=== PATIENT | female | born 1940 | race Caucasian/White ===

== ENCOUNTER 2022-06-15 10:27 | Inpatient (IN) ==
[2022-06-15] MEDS ORDERED: ONDANSETRON 4 MG/2 ML VIAL IV ONE (11:14)
[2022-06-15 11:16] LABS: POC Calcium, Ionized 1.23 (1.16-1.32); POC Creatinine 1.9 (0.6-1.2); POC Potassium 3.9 (3.3-5.1)
[2022-06-15 12:03] LABS: Basophils # (Auto) 0.02 K/mcL (0.00-0.30); Basophils % (Auto) 0.3 % (0.0-2.0); Eosinophils # (Auto) 0.01 K/mcL (0.00-0.70); Eosinophils % (Auto) 0.2 % (0.0-7.0); Hematocrit 34.3 % (34.1-44.9); Hemoglobin 11.6 g/dL (11.2-15.7); Lymphocytes # (Auto) 1.02 K/mcL (1.50-4.80); Lymphocytes % (Auto) 16.2 % (15.5-49.0); Mean Cell Volume 95.3 fL (80.0-100.0); Mean Corpuscular HGB Conc 33.8 g/dL (31.0-36.0); Mean Platelet Volume 9.9 fL (8.8-12.5); Monocytes % (Auto) 9.6 % (1.0-12.0); Neutrophils % (Auto) 73.5 % (38.0-78.0); Platelet Count 130 K/mcL (140-440); Red Cell Distribution Width 12.8 % (11.5-14.5); WBC 6.3 K/mcL (4.5-11.0)
[2022-06-15] MEDS ORDERED: 0.9 % SODIUM CHLORIDE 1,000 ML IV ONE ×3 (12:27→16:34)
--- NOTE | 2022-06-15 12:29 | Emergency Department Note ---
Nausea/Vomiting/Diarrhea HPI General Chief complaint: Nausea/Vomiting/Diarrhea Stated complaint: cold/flu sx Time Seen by Provider: 06/15/22 10:55 Source: patient and family Mode of arrival: wheelchair History of Present Illness HPI Narrative: 81-year-old female with a history of hypertension, depression/anxiety, and frequent UTIs presents to the ER with 5 days of nausea, no vomiting, and frequent diarrhea. She states that the diarrhea started 5 days ago and was persistent every 1/2 hour. Denies blood in her stool. On day 3 she took some Imodium and it slowed down. She denies abdominal pain. Previous abdominal surgeries include a cholecystectomy and hysterectomy/oophorectomy. She is belching frequently. Her son is with her to give some of her history today and states that she was chilled yesterday and they were having to pile blankets on her. She has been been taking ibuprofen and Tylenol for pain and fever. She is currently afebrile. She does endorse some dysuria. Denies flank pain. Related Data Home Medications Medication Instructions Recorded Confirmed aspirin 81 mg chewable tablet 81 mg PO DAILY 06/12/15 06/15/22 cranberry [id number]-[id number] coag 450 1 each PO DAILY 09/06/16 06/15/22 mg-30 mg-50 million cell tablet vitamin B complex 1 cap PO QDAY 07/18/19 06/15/22 cyanocobalamin (vitamin B-12) 100 See Rx Instructions .Route .COMPLEX 01/03/20 06/15/22 mcg/mL injection solution Previous Rx's Medication Instructions Recorded ondansetron 4 mg disintegrating 4 mg PO Q8H PRN nausea and 03/02/21 tablet vomiting #20 tabs bupropion HCl 100 mg tablet,12 hr See Rx Instructions .Route 03/08/22 sustained-release .COMPLEX #90 tabs escitalopram oxalate 20 mg tablet 20 mg PO QDAY depression #90 tabs 03/08/22 clorazepate dipotassium 3.75 mg 3.75 mg PO TID 90 days #270 tabs 04/01/22 tablet cholecalciferol (vitamin D3) 25 25 mcg PO QDAY #30 caps 04/12/22 mcg (1,000 unit) capsule bisoprolol fumarate 10 mg tablet See Rx Instructions .Route 04/27/22 .COMPLEX #90 tabs dicyclomine 10 mg capsule 10 mg PO BID IBS #60 caps 04/27/22 telmisartan 40 mg tablet 40 mg PO QAM #90 tabs 05/04/22 omeprazole 20 mg capsule,delayed 20 mg PO QDAY #90 caps 05/13/22 release mirtazapine 15 mg tablet 22.5 mg PO QHS 30 days #45 tabs 06/15/22 Allergies Allergy/AdvReac Type Severity Reaction Status Date / Time Penicillins Allergy Severe Unknown Verified 05/30/22 16:58 acetaminophen Allergy Unknown Unknown Verified 05/30/22 16:58 [From Darvocet-N] Nortriptyline AdvReac Intermediate Fatigued Verified 05/30/22 16:58 Amoxicillin AdvReac Nausea Verified 05/30/22 16:58 cefuroxime AdvReac Nausea Verified 05/30/22 16:58 cephalexin AdvReac Nausea Verified 05/30/22 16:58 ciprofloxacin [From Cipro] AdvReac Nausea Verified 05/30/22 16:58 codeine AdvReac Nausea Verified 05/30/22 16:58 Erythromycin Base AdvReac Nausea Verified 05/30/22 16:58 losartan [Losartan] AdvReac Nausea Verified 05/30/22 16:58 methylprednisolone AdvReac Nausea Verified 05/30/22 16:58 metoclopramide AdvReac Nausea Verified 05/30/22 16:58 naproxen AdvReac Nausea Verified 05/30/22 16:58 nitrofurantoin AdvReac Nausea Verified 05/30/22 16:58 prochlorperazine AdvReac Nausea Verified 05/30/22 16:58 [From Compazine] promethazine AdvReac Nausea Verified 05/30/22 16:58 propoxyphene AdvReac Nausea Verified 05/30/22 16:58 sulfamethoxazole AdvReac Nausea Verified 05/30/22 16:58 [From Bactrim] trimethoprim [From Bactrim] AdvReac Nausea Verified 05/30/22 16:58 erythromycin Allergy Unknown Unknown Uncoded 05/07/22 10:29 dextropropoxyphene AdvReac Unknown Nausea Uncoded 05/07/22 10:29 Review of Systems ROS ROS Narrative: Narrative: All systems ED: reviewed and negative except as stated. PFSH Narrative Patient History Narrative: Narrative: Medical/Surgical/Family History All Active Problems (Updated 06/15/22 @ 19:23 by Shanon Guillory PA-C) Acute dehydration (Acute) Weakness (Acute) Acute renal insufficiency (Acute) Diarrhea (Acute) Orthostasis (Acute) Dehydration (Acute) Stage 1 acute kidney injury (Acute) Nausea (Acute) Chronic nausea (Acute) HIV screening declined (Acute) Do not resuscitate (Acute) Medicare annual wellness visit, subsequent (Acute) Hair loss (Acute) Cerumen impaction (Acute) UTI (urinary tract infection) (Acute) Rhinorrhea (Acute) Chronic gastritis (Acute) Headache (Acute) Dark urine (Acute) Irritable bowel syndrome (Acute) Right shoulder strain (Acute) Pedal edema (Acute) Major depressive disorder, recurrent (Chronic) Hypertension, well controlled (Acute) Irritable bowel syndrome with alternating bowel habits (Acute) SOB (shortness of breath) (Acute) Acute exacerbation of CHF (congestive heart failure) (Acute) Fecal incontinence (Chronic) Constipation (Acute) Greater trochanteric bursitis of left hip (Chronic) Anemia, B12 deficiency (Chronic) Cervical spine arthritis (Acute) Obesity (Chronic) Arthritis of left knee (Acute) Arthritis of left hip (Acute) History of panic attacks (Chronic) Generalized anxiety disorder (Chronic) Generalized anxiety disorder with panic attacks (Acute) MDD (major depressive disorder), recurrent episode, moderate (Acute) Esophagitis (Chronic) Gastric polyp (Chronic) Schatzki's ring (Chronic) Primary osteoarthritis, left hand (Chronic) Fatigue (Chronic) Poor sleep (Chronic) High blood pressure (Chronic) Depression with anxiety (Chronic) Urinary frequency (Chronic) Medical History Anxiety Cerumen impaction Chronic gastritis Dr. Galvez Chronic nausea Chronic nausea Chronic UTI Depression Depression with anxiety Dizziness Do not resuscitate Dry mouth Esophagitis Fainting Fatigue Functional nausea Gastric polyp Greater trochanteric bursitis of left hip Hair loss High blood pressure HIV screening declined Medicare annual wellness visit, subsequent Obesity Palpitations Poor sleep Primary osteoarthritis, left hand Schatzki's ring Denies symptoms-12/18/20 Trochanteric bursitis of left hip Urinary frequency UTI (urinary tract infection) Surgical History History of broken finger left thumb History of cholecystectomy History of esophagogastroduodenoscopy (EGD) (03/25/17) History of laparoscopic cholecystectomy History of toe surgery x3 History of tonsillectomy and adenoidectomy History of total hysterectomy (~1994) History of total knee replacement 2007; 2011 Family History Mother Cancer Arthritis Alcoholism Daughter Opioid dependence Father Heart disease Social History Smoking Status: Never smoker Alcohol Intake Frequency: does not drink Substance Use: does not use Exam Narrative Narrative: General: AOx3, NAD, nontoxic appearing. Pleasant and conversant. HEENT: PERRL, EOMI, normocephalic. Moist mucous membranes. Normal facies and normal dentition. Chest: Symmetric, no pain to palpation Respiratory: Lungs clear to auscultation bilaterally. No respiratory distress. Unlabored breathing. Heart: Regular rate and rhythm, no murmurs/clicks/rubs. Abdomen: Non-tender, Non distended, normal bowel tones. No organomegaly. Extremities: Warm and well perfused. No edema. DP 2+ bilaterally. No venous stasis. Neuro: No focal deficits. Cranial nerves II-XII grossly normal. Skin: Warm dry, no rashes or lesions, no cyanosis. Psych: Normal mood and affect Heme/Lymph: No abnormal bruising Course Course Course Narrative: 81-year-old female patient presents with 5 days of profuse diarrhea with nausea Reevaluation(s) Reevaluation #1: Obtain basic labs, hepatic panel, UA, stool culture, C. difficile PCR Establish IV and give 1 L IV fluids Reevaluation #2: Basic labs show a ywoau-jo-ibmd creatinine of 1.9 with baseline creatinine of 1.1-1.3. BUN is 21. Electrolytes within normal limits. CBC without leukocytosis or left shift Hepatic panel within normal limits. We will give another liter of fluid and recheck her creatinine Reevaluation #3: After 2 L of fluid the patient's creatinine has down trended to 1.5. Initially patient was agreeable to discharging home given her unremarkable work- up. She then got up to the toilet and had another episode of diarrhea. She has not been able to give us urine sample. She states she still feels very weak. I had her orthostatics checked and they are positive with a line blood pressure of 147/72 mmHg that trended down to 97/81 mmHg standing. Pulse remained the same but she is currently on a beta-anjana. Additional Reevaluation(s): I reached out to the hospitalist for observation admission and waiting to hear back. Vital Signs Vital signs: Vital Signs Temperature 98.5 F 06/15/22 10:30 Pulse Rate 82 06/15/22 10:30 Respiratory Rate 20 06/15/22 10:30 Blood Pressure 93/57 06/15/22 10:30 Pulse Oximetry (%) 96 06/15/22 10:30 Oxygen Delivery Method Room Air 06/15/22 10:30 Temperature 98.5 F 06/15/22 10:30 Pulse Rate 88 06/15/22 18:17 Respiratory Rate 20 06/15/22 10:30 Blood Pressure 128/68 06/15/22 18:17 Pulse Oximetry (%) 96 06/15/22 18:17 Oxygen Delivery Method Room Air 06/15/22 10:30 MDM MDM Narrative Medical decision making narrative: Acute dehydration Orthostasis Weakness Diarrhea Acute renal insufficiency Patient has been given 2 L of IV fluids and still remains orthostatic. She continues to be weak and have frequent diarrhea. Currently her stool culture and C. difficile PCR are pending. Blood cultures are also pending. I was unable to collect a urine sample, but this will need to be completed. She does have acute renal insufficiency secondary to dehydration, and given her o rthostasis I believe she should be admitted for observation. Dr. Power has accepted the patient for admission. Lab Data 06/15/22 11:00 Labs: Lab Results 06/15/22 06/15/22 06/15/22 Range/Units 11:00 11:00 11:10 WBC 6.3 (4.5-11.0) K/mcL RBC 3.60 (3.59-5.38) M/mcL Hgb 11.6 (11.2-15.7) g/dL Hct 34.3 (34.1-44.9) % POC Hct 34.0 L (36-48) MCV 95.3 (80.0-100.0) fL MCH 32.2 (26.0-34.0) pg MCHC 33.8 (31.0-36.0) g/dL RDW 12.8 (11.5-14.5) % Plt Count 130 L (140-440) K/mcL MPV 9.9 (8.8-12.5) fL Immature Gran % (Auto) 0.2 (0.0-0.5) % Neut % (Auto) 73.5 (38.0-78.0) % Lymph % (Auto) 16.2 (15.5-49.0) % Hand % (Auto) 9.6 (1.0-12.0) % Eos % (Auto) 0.2 (0.0-7.0) % Baso % (Auto) 0.3 (0.0-2.0) % Lymph # (Auto) 1.02 L (1.50-4.80) K/mcL Hand # (Auto) 0.60 (0.10-0.90) K/mcL Eos # (Auto) 0.01 (0.00-0.70) K/mcL Baso # (Auto) 0.02 (0.00-0.30) K/mcL Immature Gran # 0.01 (0.00-0.05) K/mcl Absolute Neutrophils 4.62 (1.80-8.00) K/mcL POC Sodium 139 (133-145) POC Potassium 3.9 (3.3-5.1) POC Chloride 106 (96-108) POC Total CO2 25.0 (22-30) POC BUN 21 H (6-20) POC Creatinine 1.9 H (0.6-1.2) POC Glucose 107 H (70-105) POC WB Ioniz Calcium 1.23 (1.16-1.32) Total Bilirubin 0.5 (0.1-1.0) mg/dL Direct Bilirubin < 0.2 (0-0.3) mg/dL AST 20 (<32) U/L ALT 12 (<40) U/L Alkaline Phosphatase 58 (39-117) U/L Total Protein 6.4 (5.9-8.4) gm/dL Albumin 3.8 (3.2-5.2) gm/dL Globulin 2.6 (2.2-3.7) gm/dL Lipase 21 (7-60) U/L Urine Color Urine Appearance (Clear) Urine pH (5.0-9.0) Ur Specific Traer (1.000-1.035) Urine Protein (Negative) mg/dL Urine Glucose (UA) (Negative) mg/dL Urine Ketones (Negative) mg/dL Urine Occult Blood (Negative) mg/dL Urine Nitrate (Negative) Urine Bilirubin (Negative) mg/dL Urine Urobilinogen mg/dL Ur Leukocyte Esterase (Negative) /uL Urine RBC (0-3) /hpf Urine WBC (0-4) /hpf Ur Squamous Epith Cells (0-4) /hpf Urine Bacteria (0) /hpf Urine Mucus (None) /hpf Ur Culture Indicated? 06/15/22 06/15/22 Range/Units 15:20 17:42 WBC (4.5-11.0) K/mcL RBC (3.59-5.38) M/mcL Hgb (11.2-15.7) g/dL Hct (34.1-44.9) % POC Hct 33.0 L (36-48) MCV (80.0-100.0) fL MCH (26.0-34.0) pg MCHC (31.0-36.0) g/dL RDW (11.5-14.5) % Plt Count (140-440) K/mcL MPV (8.8-12.5) fL Immature Gran % (Auto) (0.0-0.5) % Neut % (Auto) (38.0-78.0) % Lymph % (Auto) (15.5-49.0) % Hand % (Auto) (1.0-12.0) % Eos % (Auto) (0.0-7.0) % Baso % (Auto) (0.0-2.0) % Lymph # (Auto) (1.50-4.80) K/mcL Hand # (Auto) (0.10-0.90) K/mcL Eos # (Auto) (0.00-0.70) K/mcL Baso # (Auto) (0.00-0.30) K/mcL Immature Gran # (0.00-0.05) K/mcl Absolute Neutrophils (1.80-8.00) K/mcL POC Sodium 141 (133-145) POC Potassium 3.6 (3.3-5.1) POC Chloride 108 (96-108) POC Total CO2 23.0 (22-30) POC BUN 18 (6-20) POC Creatinine 1.5 H (0.6-1.2) POC Glucose 93 (70-105) POC WB Ioniz Calcium 1.21 (1.16-1.32) Total Bilirubin (0.1-1.0) mg/dL Direct Bilirubin (0-0.3) mg/dL AST (<32) U/L ALT (<40) U/L Alkaline Phosphatase (39-117) U/L Total Protein (5.9-8.4) gm/dL Albumin (3.2-5.2) gm/dL Globulin (2.2-3.7) gm/dL Lipase (7-60) U/L Urine Color Yellow Urine Appearance Clear (Clear) Urine pH 5.0 (5.0-9.0) Ur Specific Traer 1.008 (1.000-1.035) Urine Protein Negative (Negative) mg/dL Urine Glucose (UA) Negative (Negative) mg/dL Urine Ketones Negative (Negative) mg/dL Urine Occult Blood Negative (Negative) mg/dL Urine Nitrate Negative (Negative) Urine Bilirubin Negative (Negative) mg/dL Urine Urobilinogen Negative mg/dL Ur Leukocyte Esterase 75 A (Negative) /uL Urine RBC 1 (0-3) /hpf Urine WBC 4 (0-4) /hpf Ur Squamous Epith Cells 1 (0-4) /hpf Urine Bacteria None (0) /hpf Urine Mucus Few A (None) /hpf Ur Culture Indicated? No ED POC Tests ED POC Tests: ARACELIS - Influenza A Negative ARACELIS - Influenza B Negative ARACELIS - SARS Antigen Negative Discharge Plan Patient/Caregiver Discharge Instructions Pt seen by [employer]/PA only: Yes Clinical Impression: Acute dehydration, Weakness, Acute renal insufficiency, Diarrhea, Orthostasis Activity Restrictions/Additional Instructions: You were seen and evaluated today for gastrointestinal symptoms, dehydration, and weakness. You had a laboratory work-up that was unremarkable other than a decrease in your kidney function, which I think is related to acute dehydration. Your stool culture, urine culture and blood cultures are pending. If any of these are abnormal we will give you a call. In the meantime stay hydrated. Use your Zofran for nausea. I recommend using Imodium if you are having frequent diarrhea to prevent further dehydration. I did review your medications and there are no adjustments to dosing necessary at this time. Follow-up with your psychiatrist as soon as possible regarding concerns for the current medications you are taking. Patient Disposition: Xfer As Inpt ([facility]) Condition: Fair Follow up with: Black Stanley MD [Primary Care Provider] - Prescriptions: No Action bupropion HCl 100 mg tablet sustained-release 12 hr See Rx Instructions .ROUTE .COMPLEX Qty: 90 1RF Dose Instruction: TAKE 1 TABLET BY MOUTH EVERY DAY Rx Instructions: TAKE 1 TABLET BY MOUTH EVERY DAY escitalopram oxalate 20 mg tablet 20 mg PO QDAY Qty: 90 1RF clorazepate dipotassium 3.75 mg tablet 3.75 mg PO TID 90 Days Qty: 270 1RF cyanocobalamin (vitamin B-12) 100 mcg/mL solution See Rx Instructions .ROUTE .COMPLEX Rx Instructions: 1000mcg IM once a month; cholecalciferol (vitamin D3) 25 mcg (1,000 unit) capsule 25 mcg PO QDAY Qty: 30 2RF bisoprolol fumarate 10 mg tablet See Rx Instructions .ROUTE .COMPLEX Qty: 90 0RF Dose Instruction: TAKE 1 TABLET BY MOUTH EVERY DAY Rx Instructions: TAKE 1 TABLET BY MOUTH EVERY DAY dicyclomine 10 mg capsule 10 mg PO BID Qty: 60 5RF telmisartan 40 mg tablet 40 mg PO QAM Qty: 90 0RF omeprazole 20 mg capsule,delayed release(DR/EC) 20 mg PO QDAY Qty: 90 0RF mirtazapine 15 mg tablet 22.5 mg PO QHS 30 Days Qty: 45 2RF vitamin B complex Capsule 1 cap PO QDAY aspirin 81 MG tablet,chewable 81 mg PO DAILY cranberry [id number] coag 1 EACH tablet 1 each PO DAILY ondansetron 4 mg tablet,disintegrating 4 mg PO Q8H PRN (Reason: nausea and vomiting) Qty: 20 0RF
[2022-06-15 12:39] LABS: ALT/SGPT 12 U/L (<40); AST/SGOT 20 U/L (<32); Albumin 3.8 gm/dL (3.2-5.2); Alkaline Phosphatase 58 U/L (39-117); Bilirubin,Direct < 0.2 mg/dL (0-0.3); Bilirubin,Total 0.5 mg/dL (0.1-1.0); Globulin 2.6 gm/dL (2.2-3.7)
[2022-06-15] MEDS ORDERED: LOPERAMIDE 2 MG CAPSULE PO ONE (15:09)
[2022-06-15 15:34] LABS: POC Calcium, Ionized 1.21 (1.16-1.32); POC Creatinine 1.5 (0.6-1.2); POC Potassium 3.6 (3.3-5.1)
--- NOTE | 2022-06-15 17:40 | Internal Med History&Physical ---
HPI History of Present Illness Patient information: Note initiated : 06/15/22 at 5:37 pm Service Date, if different from initiated Date: [] Patient: René Montero a 81 y/o F admitted on for cold/flu sx. Chief Complaint: [diarrhea and lightheadedness] Chief complaint: diarrhea and lightheadedness History of present illness: Ms. Montero is a 81 year old F history of depression anxiety and hypertensions presenting with 1 week history of diarrhea. No prior similar episode. She denies sick contacts introduction of new food or recent travel. She stated that her psychiatrist changes some of her antidepressant about a month ago. She is having watery diarrhea for the past week. She denies any nausea or vomiting. She denies any abdominal pain. She denies any urinary symptoms such as dysuria or change in urinary urgency she urinary more frequently but she attributed to the fact that she tried to drink a lot more to make up for the diarrhea that she had. She is also having lightheadedness. Vital signs upon ED presentations within normal limits but positive for orthostatic hypotension. Labs significant for lack of leukocytosis with WBC 6.3. Lactic acid pending. Procalcitonin pending. CT of the PCR negative. Stool enteric pathogen pending. Serum BUN/creatinine 21 and 1.9, respectively. Admission request is called for symptomatic dehydration. Constitutional Constitutional: Present weakness; Absent chills, excessive sweating, fatigue or fever(s) EENT Eyes: Absent blurry vision, change in vision, loss of vision or other visual disturbances Ears: Absent decreased hearing or tinnitus Nose, mouth and throat: Absent abnormal hearing, dry mouth, headache(s), nasal congestion or sore throat Cardiovascular Cardiovascular: Absent chest pain, chest pain at rest, edema, irregular heart rh ythm or palpatations Respiratory Respiratory: Absent cough, dyspnea or wheezing Gastrointestinal Gastrointestinal: Present diarrhea; Absent abdominal pain, constipation, nausea or vomiting Musculoskeletal Musculoskeletal: Absent back pain, deformity, limited range of motion, muscle cramps, muscle weakness or numbness Integumentary Integumentary: Absent lesions, rash or wounds Neurological Neurological: Absent focal weakness, headache(s) or numbness Psychiatric Psychiatric: Absent anxiety, depression or hallucinations PFSH PFSH All Active Problems (Updated 06/15/22 @ 17:46 by Todd Power MD) Dehydration (Acute) Stage 1 acute kidney injury (Acute) Nausea (Acute) Chronic nausea (Acute) HIV screening declined (Acute) Do not resuscitate (Acute) Medicare annual wellness visit, subsequent (Acute) Hair loss (Acute) Cerumen impaction (Acute) UTI (urinary tract infection) (Acute) Rhinorrhea (Acute) Chronic gastritis (Acute) Headache (Acute) Dark urine (Acute) Irritable bowel syndrome (Acute) Right shoulder strain (Acute) Pedal edema (Acute) Major depressive disorder, recurrent (Chronic) Hypertension, well controlled (Acute) Irritable bowel syndrome with alternating bowel habits (Acute) SOB (shortness of breath) (Acute) Acute exacerbation of CHF (congestive heart failure) (Acute) Fecal incontinence (Chronic) Constipation (Acute) Greater trochanteric bursitis of left hip (Chronic) Anemia, B12 deficiency (Chronic) Cervical spine arthritis (Acute) Obesity (Chronic) Arthritis of left knee (Acute) Arthritis of left hip (Acute) History of panic attacks (Chronic) Generalized anxiety disorder (Chronic) Generalized anxiety disorder with panic attacks (Acute) MDD (major depressive disorder), recurrent episode, moderate (Acute) Esophagitis (Chronic) Gastric polyp (Chronic) Schatzki's ring (Chronic) Primary osteoarthritis, left hand (Chronic) Fatigue (Chronic) Poor sleep (Chronic) High blood pressure (Chronic) Depression with anxiety (Chronic) Urinary frequency (Chronic) Medical History Anxiety Cerumen impaction Chronic gastritis Dr. Galvez Chronic nausea Chronic nausea Chronic UTI Depression Depression with anxiety Dizziness Do not resuscitate Dry mouth Esophagitis Fainting Fatigue Functional nausea Gastric polyp Greater trochanteric bursitis of left hip Hair loss High blood pressure HIV screening declined Medicare annual wellness visit, subsequent Obesity Palpitations Poor sleep Primary osteoarthritis, left hand Schatzki's ring Denies symptoms-12/18/20 Trochanteric bursitis of left hip Urinary frequency UTI (urinary tract infection) Surgical History History of broken finger left thumb History of cholecystectomy History of esophagogastroduodenoscopy (EGD) (03/25/17) History of laparoscopic cholecystectomy History of toe surgery x3 History of tonsillectomy and adenoidectomy History of total hysterectomy (~1994) History of total knee replacement 2007; 2011 Family History Mother Cancer Arthritis Alcoholism Daughter Opioid dependence Father Heart disease Social History physical activity: walking frequency: 3-4 times per week smoking status: Never smoker alcohol intake frequency: does not drink substance use type: does not use seatbelt use: always MEDS/ALLERGIES Home Medications and Allergies Home Medications Medication Instructions Recorded Confirmed Type aspirin 81 mg chewable tablet 81 mg PO DAILY 06/12/15 06/15/22 History cranberry [id number] coag 450 1 each PO DAILY 09/06/16 06/15/22 History mg-30 mg-50 million cell tablet vitamin B complex 1 cap PO QDAY 07/18/19 06/15/22 History cyanocobalamin (vitamin B-12) 100 See Rx Instructions .Route .COMPLEX 01/03/20 06/15/22 History mcg/mL injection solution ondansetron 4 mg disintegrating 4 mg PO Q8H PRN nausea and 03/02/21 06/15/22 Rx tablet vomiting #20 tabs bupropion HCl 100 mg tablet,12 hr See Rx Instructions .Route 03/08/22 06/15/22 Rx sustained-release .COMPLEX #90 tabs escitalopram oxalate 20 mg tablet 20 mg PO QDAY depression #90 tabs 03/08/22 06/15/22 Rx clorazepate dipotassium 3.75 mg 3.75 mg PO TID 90 days #270 tabs 04/01/22 06/15/22 Rx tablet cholecalciferol (vitamin D3) 25 25 mcg PO QDAY #30 caps 04/12/22 06/15/22 Rx mcg (1,000 unit) capsule bisoprolol fumarate 10 mg tablet See Rx Instructions .Route 04/27/22 06/15/22 Rx .COMPLEX #90 tabs dicyclomine 10 mg capsule 10 mg PO BID IBS #60 caps 04/27/22 06/15/22 Rx telmisartan 40 mg tablet 40 mg PO QAM #90 tabs 05/04/22 06/15/22 Rx omeprazole 20 mg capsule,delayed 20 mg PO QDAY #90 caps 05/13/22 06/15/22 Rx release mirtazapine 15 mg tablet 22.5 mg PO QHS 30 days #45 tabs 06/15/22 06/15/22 Rx Allergies Allergy/AdvReac Type Severity Reaction Status Date / Time Penicillins Allergy Severe Unknown Verified 05/30/22 16:58 acetaminophen Allergy Unknown Unknown Verified 05/30/22 16:58 [From Darvocet-N] Nortriptyline AdvReac Intermediate Fatigued Verified 05/30/22 16:58 Amoxicillin AdvReac Nausea Verified 05/30/22 16:58 cefuroxime AdvReac Nausea Verified 05/30/22 16:58 cephalexin AdvReac Nausea Verified 05/30/22 16:58 ciprofloxacin [From Cipro] AdvReac Nausea Verified 05/30/22 16:58 codeine AdvReac Nausea Verified 05/30/22 16:58 Erythromycin Base AdvReac Nausea Verified 05/30/22 16:58 losartan [Losartan] AdvReac Nausea Verified 05/30/22 16:58 methylprednisolone AdvReac Nausea Verified 05/30/22 16:58 metoclopramide AdvReac Nausea Verified 05/30/22 16:58 naproxen AdvReac Nausea Verified 05/30/22 16:58 nitrofurantoin AdvReac Nausea Verified 05/30/22 16:58 prochlorperazine AdvReac Nausea Verified 05/30/22 16:58 [From Compazine] promethazine AdvReac Nausea Verified 05/30/22 16:58 propoxyphene AdvReac Nausea Verified 05/30/22 16:58 sulfamethoxazole AdvReac Nausea Verified 05/30/22 16:58 [From Bactrim] trimethoprim [From Bactrim] AdvReac Nausea Verified 05/30/22 16:58 erythromycin Allergy Unknown Unknown Uncoded 05/07/22 10:29 dextropropoxyphene AdvReac Unknown Nausea Uncoded 05/07/22 10:29 EXAM Constitutional Vitals: Temp Pulse Resp BP Pulse Ox O2 Del Method 36.9 C 83 20 129/47 97 Room Air 06/15/22 10:30 06/15/22 15:38 06/15/22 10:30 06/15/22 15:32 06/15/22 15:38 06/15/22 10:30 General appearance: cooperative and no acute distress Head Head exam: Present atraumatic and normocephalic Eye Eye exam: Present EOMI and PERRL ENT ENT exam: Present mucous membranes moist, normal exam and normal external ear exam Neck Neck exam: Present normal inspection; Absent lymphadenopathy, tenderness or thyromegaly Respiratory Respiratory exam: Absent accessory muscle use, respiratory distress or wheezes Cardiovascular Cardiovascular exam: Present normal rate and rhythm; Absent JVD GI/Abdominal GI/Abdominal exam: Present normal bowel sounds and soft; Absent organomegaly or tenderness Extremities Exam Extremities exam: Present full ROM, normal capillary refill and normal inspection; Absent tenderness Neurological Exam Neurological exam: Present alert, CN II-XII intact and oriented X3; Absent motor sensory deficit Psychiatric Psychiatric exam: Present normal affect and normal mood; Absent anxious or depressed Skin Skin exam: Present dry and intact DATA Data Completed and Pending Labs: Labs from last 24 hours 06/15/22 06/15/22 06/15/22 15:20 11:10 11:00 WBC RBC Hgb Hct POC Hct 33.0 L 34.0 L MCV MCH MCHC RDW Plt Count MPV Immature Gran % (Auto) Neut % (Auto) Lymph % (Auto) Cook % (Auto) Eos % (Auto) Baso % (Auto) Lymph # (Auto) Cook # (Auto) Eos # (Auto) Baso # (Auto) Immature Gran # Absolute Neutrophils POC Sodium 141 139 POC Potassium 3.6 3.9 POC Chloride 108 106 POC Total CO2 23.0 25.0 POC BUN 18 21 H POC Creatinine 1.5 H 1.9 H POC Glucose 93 107 H POC WB Ioniz Calcium 1.21 1.23 Total Bilirubin 0.5 Direct Bilirubin < 0.2 AST 20 ALT 12 Alkaline Phosphatase 58 Total Protein 6.4 Albumin 3.8 Globulin 2.6 Lipase 21 06/15/22 11:00 WBC 6.3 RBC 3.60 Hgb 11.6 Hct 34.3 POC Hct MCV 95.3 MCH 32.2 MCHC 33.8 RDW 12.8 Plt Count 130 L MPV 9.9 Immature Gran % (Auto) 0.2 Neut % (Auto) 73.5 Lymph % (Auto) 16.2 Cook % (Auto) 9.6 Eos % (Auto) 0.2 Baso % (Auto) 0.3 Lymph # (Auto) 1.02 L Cook # (Auto) 0.60 Eos # (Auto) 0.01 Baso # (Auto) 0.02 Immature Gran # 0.01 Absolute Neutrophils 4.62 POC Sodium POC Potassium POC Chloride POC Total CO2 POC BUN POC Creatinine POC Glucose POC WB Ioniz Calcium Total Bilirubin Direct Bilirubin AST ALT Alkaline Phosphatase Total Protein Albumin Globulin Lipase A/P Assessment and plan (1) Stage 1 acute kidney injury: Status: Acute (2) Dehydration: Status: Acute (3) Diarrhea: Status: Resolved Qualifiers: Diarrhea type: presumed infectious Qualified Code(s): R19.7 - Diarrhea, unspecified (4) Major depressive disorder, recurrent: Status: Chronic Qualifiers: Active/Remission status: currently active Major depression episode severity: moderate Qualified Code(s): F33.1 - Major depressive disorder, recurrent, moderate (5) Generalized anxiety disorder: Status: Chronic (6) Hypertension, well controlled: Status: Acute Narrative A/P Narrative: Assessment and Plans: 1. Clinical dehydration and stage 1 acute kidney injury: Observation med surg s/p 2L fluid bolus given in the ED, to be followed by NS@100cc/hr Avoid nephrotoxic agents BMP in the morning to trend kidney functions 2. Diarrhea: C diff negative Stool enteric pathogen PCR pending Imodium s/p 2L fluid bolus given in the ED, to be followed by NS@100cc/hr for rehydration purposes 3. Depression/anxiety: Okay to resume antidepressants 4. Essential hypertension: Losartan Bisoprolol GI ppx: Prilosec DVT ppx: Heparin Code status: DNR Prognosis: stable Disposition: observation med surg; PT Time Spent With Patient Time: Total time spent is greater than 50% in coordination of care (as documented) at patient's floor/unit and/or counseling patient: Initial: Total time with patient: 55 - 74 minutes
[2022-06-15 19:15] LABS: Appearance,Urine CLEAR (Clear); Bilirubin,Urine Negative (Negative); Color,Urine YELLOW; Culture Indicated,Urine No; Glucose,Urine (UA) Negative (Negative); Ketones,Urine Negative (Negative); Leukocyte Esterase,Urine 75 /uL (Negative); Mucus,Urine FEW /hpf; Nitrate,Urine Negative (Negative); Protein,Urine Negative (Negative); Specific Gravity,Urine 1.008 (1.000-1.035); Urine Blood Negative (Negative); Urine RBC 1 /hpf (0-3); Urine Squamous Epithelial Cell 1 /hpf (0-4); Urine WBC 4 /hpf (0-4); Urobilinogen,Urine Negative
[2022-06-15] MEDS ORDERED: IPRATROPIUM/ALBUTEROL 3 ML AMPUL.NEB NEB PRN (19:30)
[2022-06-15] MEDS: buPROPion 100 MG TAB.SR.12H PO SCH (19:33)
[2022-06-15] MEDS: BISOPROLOL 5 MG TABLET PO SCH (19:33)
[2022-06-15] MEDS: DOCUSATE SODIUM 100 MG CAPSULE PO SCH (20:06)
[2022-06-15] MEDS: SENNOSIDES 1 TABLET PO SCH (20:07)
[2022-06-15] MEDS: DICYCLOMINE 20 MG TABLET PO SCH (20:07)
[2022-06-15] MEDS: 0.9 % SODIUM CHLORIDE 1,000 ML IV SCH (20:11)
[2022-06-15] MEDS: LOPERAMIDE 2 MG CAPSULE PO PRN (20:33)
[2022-06-15] MEDS: ONDANSETRON 4 MG/2 ML VIAL IV PRN (20:33)
[2022-06-15] MEDS: CLORAZEPATE 3.75 MG TABLET PO SCH (20:39)
[2022-06-15] MEDS: 0.9 % SODIUM CHLORIDE 10 ML SYRINGE IV SCH (20:39)
[2022-06-15] MEDS ORDERED: MIRTAZAPINE 15 MG TABLET PO SCH (21:00)
[2022-06-15] MEDS ORDERED: CLORAZEPATE 3.75 MG TABLET PO SCH (21:00)
[2022-06-15] MEDS: MIRTAZAPINE 15 MG TABLET PO SCH (21:18)
[2022-06-15] MEDS: HEPARIN 5,000 UNIT/ML VIAL SQ SCH (21:18)
[2022-06-16] MEDS: ONDANSETRON 4 MG/2 ML VIAL IV PRN (04:04)
[2022-06-16] MEDS: LOPERAMIDE 2 MG CAPSULE PO PRN ×4 (04:05→20:23)
[2022-06-16] MEDS: 0.9 % SODIUM CHLORIDE 10 ML SYRINGE IV SCH ×3 (06:04→20:13)
[2022-06-16] MEDS: 0.9 % SODIUM CHLORIDE 1,000 ML IV SCH ×2 (06:06→17:19)
[2022-06-16 07:40] LABS: Hematocrit 31.5 % (34.1-44.9); Hemoglobin 10.1 g/dL (11.2-15.7); Mean Cell Volume 98.7 fL (80.0-100.0); Mean Corpuscular HGB Conc 32.1 g/dL (31.0-36.0); Mean Platelet Volume 9.6 fL (8.8-12.5); Platelet Count 112 K/mcL (140-440); RBC 3.19 M/mcL (3.59-5.38); Red Cell Distribution Width 12.9 % (11.5-14.5); WBC 3.7 K/mcL (4.5-11.0)
[2022-06-16 07:47] LABS: Blood Urea Nitrogen 12 mg/dL (8-23); Calcium 8.1 mg/dL (8.6-10.4); Carbon Dioxide 19 mmol/L (22-30); Chloride 110 mmol/L (96-108); Glomerular Filtration Rate 47; Glucose 89 mg/dL (70-105)
[2022-06-16] MEDS: OMEPRAZOLE 20 MG CAPSULE PO SCH (08:45)
[2022-06-16] MEDS: ASPIRIN 81 MG TAB.CHEW PO SCH (08:45)
[2022-06-16] MEDS: DOCUSATE SODIUM 100 MG CAPSULE PO SCH ×2 (08:46→20:13)
[2022-06-16] MEDS: VITAMIN B COMPLEX 1 CAPSULE PO SCH (08:48)
[2022-06-16] MEDS: VITAMIN D3 25 MCG TABLET PO SCH (08:48)
[2022-06-16] MEDS: buPROPion 100 MG TAB.SR.12H PO SCH (08:49)
[2022-06-16] MEDS: BISOPROLOL 5 MG TABLET PO SCH (08:52)
[2022-06-16] MEDS: ESCITALOPRAM 20 MG TABLET PO SCH (09:00)
[2022-06-16] MEDS ORDERED: CRANBERRY C BACILLUS COAG PO SCH (09:00)
[2022-06-16] MEDS: HEPARIN 5,000 UNIT/ML VIAL SQ SCH (09:03)
[2022-06-16 10:04] LABS: Band Neutrophils % 9 % (0-10); Eosinophils % (Manual) 2 % (0-7); Lymphocytes % 35 % (15-49); Monocytes % (Manual) 6 % (1-12); Platelet Estimate DECREASED (Normal); RBC Morphology NORMAL (Normal); Segmented Neutrophils % 48 % (38-78)
[2022-06-16] MEDS: DICYCLOMINE 20 MG TABLET PO SCH ×2 (11:07→20:13)
[2022-06-16] MEDS: CLORAZEPATE 3.75 MG TABLET PO SCH ×2 (11:08→20:13)
--- NOTE | 2022-06-16 13:11 | Internal Med Progress Note ---
SUBJECTIVE Subjective Patient information: Note initiated : 06/16/22 at 1:06 pm Service Date, if different from initiated Date: [] Patient: René Montero a 81 y/o F admitted on 06/15/22 for cold/flu sx. Chief Complaint: [] Interval history: Ms. Montero is a 81 year old F history of depression anxiety and hypertensions presenting with 1 week history of diarrhea. No prior similar episode. She denies sick contacts introduction of new food or recent travel. She stated that her psychiatrist changes some of her antidepressant about a month ago. She is having watery diarrhea for the past week. She denies any nausea or vomiting. She denies any abdominal pain. She denies any urinary symptoms such as dysuria or change in urinary urgency she urinary more frequently but she attributed to the fact that she tried to drink a lot more to make up for the diarrhea that she had. She is also having lightheadedness. Vital signs upon ED presentations within normal limits but positive for orthostatic hypotension. Labs significant for lack of leukocytosis with WBC 6.3. Lactic acid pending. Procalcitonin pending. CT of the PCR negative. Stool enteric pathogen pending. Serum BUN/creatinine 21 and 1.9, respectively. Admission request is called for symptomatic dehydration. 06/16: C. difficile negative. Enteric pathogen PCR positive for Salmonella. Fever overnight with Tmax 38.7. WBC 3.7 this morning. Serum Cr 1.9-->1.1. Blood culture no growth today. Patient is having what telemetry nonbloody diarrhea overnight. She denies any nausea or vomiting. She denies any abdominal pain. Her appetite is so-so. Her energy level is so-so. Due to her advanced age and prolonged symptoms, will go ahead and start her on ciprofloxacin 500 Mg p.o. twice daily for 3 to 5 days for Salmonella gastroenteritis. Continue IV fluid and supportive measures for Salmonella gastroenteritis. Switch from observation to inpatient status. Continue physical therapy evaluation and treatment for placement planning. Constitutional Vitals: Vital Signs Temp Pulse Resp BP Pulse Ox O2 Del Method O2 Flow Rate 36.9 C 83 20 118/64 92 Room Air 0 06/16/22 12:00 06/16/22 12:00 06/16/22 12:06/16/22 12:06/16/22 12:06/16/22 12:00 06/15/22 19:26 Period Temp Pulse Resp BP Sys/Tanner Pulse Ox O2 Del Method O2 Flow Rate Last 24 Hr 36.8 C-38.7 C 79-102 14-20 109-145/47-86 90-100 Room Air-Room Air 0 Intake and Output 06/16/22 06/16/22 06/16/22 03:59 11:59 19:59 Intake Total 100 1142 Output Total 550 425 Balance -450 717 Weight 87.407 kg Intake & Output: Intake & Output 06/16/22 06/16/22 06/16/22 03:59 11:59 19:59 Intake Total 100 1142 Output Total 550 425 Balance -450 717 Weight 87.407 kg Intake: IV 992 Sodium Chloride 0.9% 1,000 ml @ 992 100 mls/hr IV .Q10H COUNTS INCLUDE 234 BEDS AT THE [facility] Rx#: [id number] Oral 100 150 Output: Void Amount 100 Urine/Stool Mix 450 425 Other: Meal Breakfast Percent of Meal Consumed 100% Feeding Ability Assist with Tray Set Up Urine Appearance Clear Urine Color Yellow Stool Size Moderate Stool Color Brown Brown Yellow Stool Consistency Liquid Liquid Watery Loose Loose # Bowel Movements 1 # of times incontinent of 1 Bowels General appearance: average body habitus, cooperative and no acute distress Head Head exam: Present atraumatic and normal inspection Eye Eye exam: Present normal appearance ENT ENT exam: Present mucous membranes moist, normal exam and normal external ear exam Neck Neck exam: Present normal inspection Respiratory Respiratory exam: Present normal respiratory exam Cardiovascular Cardiovascular exam: Present normal rate and rhythm GI/Abdominal GI/Abdominal exam: Present normal bowel sounds Back Exam Back exam: Present normal inspection Neurological Exam Neurological exam: Present alert and oriented X3 Skin Skin exam: Present intact and warm OBJ DATA Labs 06/16/22 05:42 06/16/22 05:42 Labs: Abnormal Lab Results 06/16/22 06/16/22 06/15/22 05:42 05:42 23:17 WBC 3.7 L RBC 3.19 L Hgb 10.1 L Hct 31.5 L POC Hct Plt Count 112 L Lymph # (Auto) Platelet Estimate Decreased A VBG Lactic Acid < 0.2 L Chloride 110 H Carbon Dioxide 19 L POC BUN POC Creatinine POC Glucose Calcium 8.1 L Procalcitonin Ur Leukocyte Esterase Urine Mucus 06/15/22 06/15/2206/15/23 19:40 19:40 17:42 WBC RBC Hgb Hct POC Hct Plt Count Lymph # (Auto) Platelet Estimate VBG Lactic Acid 2.2 H Chloride Carbon Dioxide POC BUN POC Creatinine POC Glucose Calcium Procalcitonin 0.14 H Ur Leukocyte Esterase 75 A Urine Mucus Few A 06/15/22 06/15/22 06/15/22 15:20 11:10 11:00 WBC RBC Hgb Hct POC Hct 33.0 L 34.0 L Plt Count 130 L Lymph # (Auto) 1.02 L Platelet Estimate VBG Lactic Acid Chloride Carbon Dioxide POC BUN 21 H POC Creatinine 1.5 H 1.9 H POC Glucose 107 H Calcium Procalcitonin Ur Leukocyte Esterase Urine Mucus Meds: Medications Albuterol/Ipratropium (Ipratropium/Albuterol 3 Ml Ampul.Neb) 3 ml NEB Q4HRT PRN PRN Reason: Wheezing Aspirin (Aspirin 81 Mg Tab.Chew) 81 mg PO DAILY COUNTS INCLUDE 234 BEDS AT THE [facility] Last Admin: 06/16/22 08:45 Dose: 81 mg Bisoprolol Fumarate (Bisoprolol 5 Mg Tablet) 10 mg PO DAILY COUNTS INCLUDE 234 BEDS AT THE [facility] Last Admin: 06/16/22 08:52 Dose: 10 mg Bupropion HCl (Bupropion 100 Mg Tab.Sr.12h) 100 mg PO DAILY COUNTS INCLUDE 234 BEDS AT THE [facility] Last Admin: 06/16/22 08:49 Dose: 100 mg Ciprofloxacin (Ciprofloxacin 500 Mg Tablet) 500 mg PO BID COUNTS INCLUDE 234 BEDS AT THE [facility]; Protocol Dicyclomine HCl (Dicyclomine 20 Mg Tablet) 10 mg PO BID COUNTS INCLUDE 234 BEDS AT THE [facility] Last Admin: 06/16/22 11:07 Dose: Not Given Docusate Sodium (Docusate Sodium 100 Mg Capsule) 100 mg PO BID COUNTS INCLUDE 234 BEDS AT THE [facility] Last Admin: 06/16/22 08:46 Dose: Not Given Escitalopram Oxalate (Escitalopram 20 Mg Tablet) 20 mg PO DAILY COUNTS INCLUDE 234 BEDS AT THE [facility] Last Admin: 06/16/22 09:00 Dose: 20 mg Heparin Sodium (Porcine) (Heparin 5,000 Unit/Ml Vial) 5,000 unit SQ Q12 COUNTS INCLUDE 234 BEDS AT THE [facility] Last Admin: 06/16/22 09:03 Dose: 5,000 unit Sodium Chloride (Sodium Chloride 0.9%) 1,000 mls @ 100 mls/hr IV .Q10H COUNTS INCLUDE 234 BEDS AT THE [facility] Last Admin: 06/16/22 06:06 Dose: 100 mls/hr Loperamide HCl (Loperamide 2 Mg Capsule) 2 mg PO PRN PRN PRN Reason: Diarrhea Last Admin: 06/16/22 08:46 Dose: 2 mg Losartan Potassium (Losartan 50 Mg Tablet) 100 mg PO DAILY COUNTS INCLUDE 234 BEDS AT THE [facility] Mirtazapine (Mirtazapine 15 Mg Tablet) 15 mg PO HS COUNTS INCLUDE 234 BEDS AT THE [facility] Last Admin: 06/15/22 21:18 Dose: 15 mg Omeprazole (Omeprazole 20 Mg Capsule) 20 mg PO ACB COUNTS INCLUDE 234 BEDS AT THE [facility] Last Admin: 06/16/22 08:45 Dose: 20 mg Ondansetron HCl (Ondansetron 4 Mg/2 Ml Vial) 4 mg IV Q6HP PRN PRN Reason: Nausea And Vomiting Last Admin: 06/16/22 04:04 Dose: 4 mg Clorazepate 3.75 Mg (Tablet) 3.75 dose PO BID COUNTS INCLUDE 234 BEDS AT THE [facility] Senna (Sennosides 1 Tablet) 2 tab PO HS COUNTS INCLUDE 234 BEDS AT THE [facility] Last Admin: 06/15/22 20:07 Dose: Not Given Sodium Chloride (0.9 % Sodium Chloride 10 Ml Syringe) 10 ml IV Q8 COUNTS INCLUDE 234 BEDS AT THE [facility] Last Admin: 06/16/22 06:04 Dose: Not Given Vitamin B Complex (Vitamin B Complex 1 Capsule) 1 cap PO DAILY COUNTS INCLUDE 234 BEDS AT THE [facility] Last Admin: 06/16/22 08:48 Dose: 1 cap Vitamin D (Vitamin D3 25 Mcg Tablet) 25 mcg PO DAILY COUNTS INCLUDE 234 BEDS AT THE [facility] Last Admin: 06/16/22 08:48 Dose: 25 mcg A/P Assessment and plan (1) Stage 1 acute kidney injury: Status: Acute (2) Dehydration: Status: Acute (3) Major depressive disorder, recurrent: Status: Chronic Qualifiers: Active/Remission status: currently active Major depression episode severity: moderate Qualified Code(s): F33.1 - Major depressive disorder, recurrent, moderate (4) Generalized anxiety disorder: Status: Chronic (5) Hypertension, well controlled: Status: Acute (6) Salmonella gastroenteritis: Status: Acute Narrative A/P Narrative: Assessment and Plans: 1. Clinical dehydration and stage 1 acute kidney injury: Inpatient med surg s/p 2L fluid bolus given in the ED, to be followed by NS@100cc/hr Avoid nephrotoxic agents BMP in the morning to trend kidney functions 2. Salmonella gastroenteritis: C diff negative Enteric pathogen PCR positive for Salmonella Imodium s/p 2L fluid bolus given in the ED, to be followed by NS@100cc/hr for rehydration purposes Due to her advanced age and prolonged symptoms, will go ahead and start her on ciprofloxacin 500 Mg p.o. twice daily for 3 to 5 days for Salmonella gastroe nteritis 3. Depression/anxiety: Okay to resume antidepressants 4. Essential hypertension: Losartan Bisoprolol GI ppx: Prilosec DVT ppx: Lovenox Code status: DNR Prognosis: stable Disposition: Inpatient med surg; PT Time Spent With Patient Time: Total time spent is greater than 50% in coordination of care (as documented) at patient's floor/unit and/or counseling patient: Subsequent: Total time with patient: 35 - 49 minutes QUALITY Stroke Symptom Onset Unknown: No VTE Deep Vein Thrombosis/Pulmonary Embolism Present on Admission: No
[2022-06-16] MEDS: LOSARTAN 50 MG TABLET PO SCH (14:51)
[2022-06-16] MEDS: SENNOSIDES 1 TABLET PO SCH (20:13)
[2022-06-16] MEDS: MIRTAZAPINE 15 MG TABLET PO SCH (20:23)
[2022-06-16] MEDS: CIPROFLOXACIN 500 MG TABLET PO SCH (20:23)
[2022-06-17] MEDS: 0.9 % SODIUM CHLORIDE 1,000 ML IV SCH ×3 (01:43→14:24)
[2022-06-17] MEDS: 0.9 % SODIUM CHLORIDE 10 ML SYRINGE IV SCH ×2 (04:40→14:20)
[2022-06-17 07:04] LABS: Hematocrit 31.3 % (34.1-44.9); Hemoglobin 10.1 g/dL (11.2-15.7); Mean Cell Volume 98.4 fL (80.0-100.0); Mean Corpuscular HGB Conc 32.3 g/dL (31.0-36.0); Mean Platelet Volume 9.3 fL (8.8-12.5); Platelet Count 106 K/mcL (140-440); RBC 3.18 M/mcL (3.59-5.38); Red Cell Distribution Width 12.8 % (11.5-14.5)
[2022-06-17 07:25] LABS: Blood Urea Nitrogen 13 mg/dL (8-23); Calcium 8.3 mg/dL (8.6-10.4); Carbon Dioxide 21 mmol/L (22-30); Chloride 111 mmol/L (96-108); Glomerular Filtration Rate 42; Glucose 86 mg/dL (70-105)
[2022-06-17] MEDS: DOCUSATE SODIUM 100 MG CAPSULE PO SCH (08:30)
[2022-06-17] MEDS: DICYCLOMINE 20 MG TABLET PO SCH (08:31)
[2022-06-17 08:43] LABS: Band Neutrophils % 9 % (0-10); Eosinophils % (Manual) 5 % (0-7); Lymphocytes % 34 % (15-49); Monocytes % (Manual) 18 % (1-12); Platelet Estimate DECREASED (Normal); RBC Morphology NORMAL (Normal); Segmented Neutrophils % 34 % (38-78)
[2022-06-17] MEDS ORDERED: ENOXAPARIN 40 MG/0.4 ML SYRINGE SQ SCH (09:00)
[2022-06-17] MEDS: BISOPROLOL 5 MG TABLET PO SCH (09:30)
[2022-06-17] MEDS: LOSARTAN 50 MG TABLET PO SCH (09:31)
[2022-06-17] MEDS: ESCITALOPRAM 20 MG TABLET PO SCH (09:32)
[2022-06-17] MEDS: buPROPion 100 MG TAB.SR.12H PO SCH (09:32)
[2022-06-17] MEDS: ASPIRIN 81 MG TAB.CHEW PO SCH (09:32)
[2022-06-17] MEDS: VITAMIN B COMPLEX 1 CAPSULE PO SCH (09:32)
[2022-06-17] MEDS: VITAMIN D3 25 MCG TABLET PO SCH (09:32)
[2022-06-17] MEDS: CIPROFLOXACIN 500 MG TABLET PO SCH (09:32)
--- NOTE | 2022-06-17 10:31 | Discharge Summary ---
Discharge Provider Provider IMPORTANT FOLLOW-UP INFORMATION FOR PCP: Patient information: Note initiated : 06/17/22 at 10:26 am Service Date, if different from initiated Date: [] Patient: René Montero 81 y/o F admitted on 06/16/22 for cold/flu sx. Chief Complaint: [] Date of admission: 06/16/22 12:53 Discharge date: 06/17/22 Primary care physician: Black Stanley MD Attending physician on admission: Todd Power Consults: 06/15/22 Consult to Physician [CONS] Stat Comment: Consulting Provider: Todd Power Reason For Exam: Physician to Consult Attending physician on discharge: Todd Power COURSE Hospital Course Hospital course: Ms. Montero is a 81 year old F history of depression anxiety and hypertensions presenting with 1 week history of diarrhea. No prior similar episode. She denies sick contacts introduction of new food or recent travel. She stated that her psychiatrist changes some of her antidepressant about a month ago. She is having watery diarrhea for the past week. She denies any nausea or vomiting. She denies any abdominal pain. She denies any urinary symptoms such as dysuria or change in urinary urgency she urinary more frequently but she attributed to the fact that she tried to drink a lot more to make up for the diarrhea that she had. She is also having lightheadedness. Vital signs upon ED presentations within normal limits but positive for orthostatic hypotension. Labs significant for lack of leukocytosis with WBC 6.3. Lactic acid pending. Procalcitonin pending. CT of the PCR negative. Stool enteric pathogen pending. Serum BUN/creatinine 21 and 1.9, respectively. Admission request is called for symptomatic dehydration. 06/16: C. difficile negative. Enteric pathogen PCR positive for Salmonella. Fever overnight with Tmax 38.7. WBC 3.7 this morning. Serum Cr 1.9-->1.1. Blood culture no growth today. Patient is having what telemetry nonbloody diarrhea o vernight. She denies any nausea or vomiting. She denies any abdominal pain. Her appetite is so-so. Her energy level is so-so. Due to her advanced age and prolonged symptoms, will go ahead and start her on ciprofloxacin 500 Mg p.o. twice daily for 3 to 5 days for Salmonella gastroenteritis. Continue IV fluid and supportive measures for Salmonella gastroenteritis. Switch from observation to inpatient status. Continue physical therapy evaluation and treatment for placement planning. 06/17: Discharged home with home health services. Rx sent to pharmacy. 2 week PCP follow up appointment made for her. All questions were answered prior to patient being physically discharged. Discharge diagnosis: Salmonella enterocolitis Time Spent with Patient Time attestation: Total time spent providing and/or coordinating discharge services: Time spent: Less than 30 minutes EXAM Constitutional Vitals: Temp Pulse Resp BP Pulse Ox O2 Del Method O2 Flow Rate 36.2 C 80 15 131/67 91 Room Air 0 06/17/22 08:20 06/17/22 08:20 06/17/22 08:20 06/17/22 08:20 06/17/22 08:20 06/17/22 08:20 06/16/22 20:00 General appearance: cooperative and no acute distress Head Head exam: Present atraumatic and normocephalic Eye Eye exam: Present EOMI and PERRL ENT ENT exam: Present mucous membranes moist, normal exam and normal external ear exam Neck Neck exam: Present normal inspection; Absent lymphadenopathy, tenderness or thyromegaly Respiratory Respiratory exam: Absent accessory muscle use, respiratory distress or wheezes Cardiovascular Cardiovascular exam: Present normal rate and rhythm; Absent JVD GI/Abdominal GI/Abdominal exam: Present normal bowel sounds and soft; Absent organomegaly or tenderness Extremities Exam Extremities exam: Present full ROM, normal capillary refill and normal inspection; Absent tenderness Neurological Exam Neurological exam: Present alert, CN II-XII intact and oriented X3; Absent motor sensory deficit Psychiatric Psychiatric exam: Present normal affect and normal mood; Absent anxious or depressed Skin Skin exam: Present dry and intact Discharge Data Data Completed and Pending Labs on day of discharge: Labs from last 24 hours 06/17/22 06/17/22 05:55 05:55 WBC 3.0 L RBC 3.18 L Hgb 10.1 L Hct 31.3 L MCV 98.4 MCH 31.8 MCHC 32.3 RDW 12.8 Plt Count 106 L MPV 9.3 Seg Neutrophils % 34 L Band Neutrophils % 9 Lymphocytes % 34 Monocytes % (Manual) 18 H Eosinophils % (Manual) 5 Platelet Estimate Decreased A RBC Morphology Normal Sodium 139 Potassium 3.4 Chloride 111 H Carbon Dioxide 21 L Anion Gap 7.0 L BUN 13 Creatinine 1.2 H GFR Calculation 42 Glucose 86 Calcium 8.3 L Preliminary micro results at discharge 06/15/22 11:40 Blood Culture - Preliminary Blood 06/15/22 11:30 Blood Culture - Preliminary Blood Discharge Plan Patient/Caregiver Discharge Instructions Activity: increase activity as tolerated Diet: Regular Diet Activity Restrictions/Additional Instructions: You were seen and evaluated today for gastrointestinal symptoms, dehydration, and weakness. You had a laboratory work-up that was unremarkable other than a decrease in your kidney function, which I think is related to acute dehydration. Your stool culture, urine culture and blood cultures are pending. If any of these are abnormal we will give you a call. In the meantime stay hydrated. Use your Zofran for nausea. I recommend using Imodium if you are having frequent diarrhea to prevent further dehydration. I did review your medications and there are no adjustments to dosing necessary at this time. Follow-up with your psychiatrist as soon as possible regarding concerns for the current medications you are taking. Prescriptions: New mirtazapine 15 mg tablet 22.5 mg PO HS Qty: 20 0RF loperamide 2 mg Capsule 2 mg PO PRN PRN (Reason: Diarrhea) Qty: 20 0RF ciprofloxacin HCl 500 mg Tablet 500 mg PO BID Qty: 4 0RF Continued bupropion HCl 100 mg tablet sustained-release 12 hr See Rx Instructions .ROUTE .COMPLEX Qty: 90 1RF Dose Instruction: TAKE 1 TABLET BY MOUTH EVERY DAY Rx Instructions: TAKE 1 TABLET BY MOUTH EVERY DAY escitalopram oxalate 20 mg tablet 20 mg PO QDAY Qty: 90 1RF clorazepate dipotassium 3.75 mg tablet 3.75 mg PO TID 90 Days Qty: 270 1RF mirtazapine 15 mg tablet 15 mg PO QHS 30 Days Qty: 30 2RF cyanocobalamin (vitamin B-12) 100 mcg/mL solution See Rx Instructions .ROUTE .COMPLEX Rx Instructions: 1000mcg IM once a month; cholecalciferol (vitamin D3) 25 mcg (1,000 unit) capsule 25 mcg PO QDAY Qty: 30 2RF bisoprolol fumarate 10 mg tablet See Rx Instructions .ROUTE .COMPLEX Qty: 90 0RF Dose Instruction: TAKE 1 TABLET BY MOUTH EVERY DAY Rx Instructions: TAKE 1 TABLET BY MOUTH EVERY DAY dicyclomine 10 mg capsule 10 mg PO BID Qty: 60 5RF telmisartan 40 mg tablet 40 mg PO QAM Qty: 90 0RF omeprazole 20 mg capsule,delayed release(DR/EC) 20 mg PO QDAY Qty: 90 0RF vitamin B complex Capsule 1 cap PO QDAY aspirin 81 MG tablet,chewable 81 mg PO DAILY cranberry [id number] coag 1 EACH tablet 1 each PO DAILY ondansetron 4 mg tablet,disintegrating 4 mg PO Q8H PRN (Reason: nausea and vomiting) Qty: 20 0RF Follow Up Plan Follow up with: Black Stanley MD [Primary Care Provider] - Patient Disposition: Home Health Service Prognosis: Fair Rehab Potential: Good I certify that the patient requires SNF services: No Overall status at discharge: patient is progressing back to baseline Discharge Orders: Discharge Order (Routine); Ordered 06/17/22 Ordered By: Todd CRANDALL VTE Deep Vein Thrombosis/Pulmonary Embolism Present on Admission: No
[2022-06-17] MEDS: CLORAZEPATE 3.75 MG TABLET PO SCH (10:53)
[2022-06-17] MEDS: OMEPRAZOLE 20 MG CAPSULE PO SCH (10:53)
[2022-06-17] MEDS: LOPERAMIDE 2 MG CAPSULE PO PRN (11:42)
== END 2022-06-17 16:43 | disposition home health service (06) | DRG 372 ==
LOC: MEDSUR 10:27 → ED 10:27 → MEDSUR 19:15
PROVIDERS: ADMIT Internal Medicine; ATTEND Internal Medicine